=== PATIENT | female | born 1955 | race Caucasian/White ===

== ENCOUNTER 2020-07-14 07:12 | Emergency (ER) | payer MEDICARE ==
[2020-07-14 08:14] LABS: HEMOGLOBIN 13.2 gm/dl (12.3-15.3); RED BLOOD COUNT 4.59 M/UL (4.00-5.10); WHITE BLOOD COUNT 3.4 K/UL (4.5-11.0)
[2020-07-14 08:38] LABS: BUN/CREATININE RATIO 13 (0-10)
[2020-07-14] MEDS ORDERED: VIBRAMYCIN 100100 MG PO (10:02)
[2020-07-14] MEDS ORDERED: PROAIR DIGIHAL90 MCG INH (10:02)
[2020-07-14] MEDS ORDERED: ZOFRAN ODT 4 MG4 MG PO (10:02)
== END 2020-07-14 10:35 | disposition home or self-care (01) ==
LOC: ER1 07:12
PROVIDERS: Emergency Medicine
DX: U07.1 COVID-19 (principal); J12.82 Pneumonia due to coronavirus disease 2019; I10 Essential (primary) hypertension; E03.9 Hypothyroidism, unspecified
CPT/HCPCS: 0241U; 71045; 80053; 83605; 83690; 84439; 84443; 85025; 85610; 85730; 87040; 87081; 87880; 93005; 99285

== ENCOUNTER 2020-08-17 09:01 | Emergency (ER) | payer MEDICARE ==
[~2020-08-17 09:01] MED LIST: PROAIR DIGIHAL90 MCG INH; VIBRAMYCIN 100100 MG PO; ZOFRAN ODT 4 MG4 MG PO
[2020-08-17 09:50] LABS: HEMOGLOBIN 13.1 gm/dl (12.3-15.3); RED BLOOD COUNT 4.3 M/UL (4.00-5.10); WHITE BLOOD COUNT 13.3 K/UL (4.5-11.0)
[2020-08-17 10:11] LABS: BUN/CREATININE RATIO 12 (0-10)
[2020-08-17] MEDS ORDERED: AUGMENTIN 875-1 EACH PO (12:02)
== END 2020-08-17 12:26 | disposition home or self-care (01) ==
LOC: ER1 09:01
PROVIDERS: Emergency Medicine
DX: K52.9 Noninfective gastroenteritis and colitis, unspecified (principal)
CPT/HCPCS: 80053; 81001; 83690; 85025; 99284; Q9967

== ENCOUNTER 2021-07-11 07:38 | Emergency (ER) | payer MEDICARE ==
[~2021-07-11 07:38] MED LIST changes: +AUGMENTIN 875-1 EACH PO
== END 2021-07-11 11:25 | disposition home or self-care (01) ==
LOC: ER1 07:38
DX: K59.00 Constipation, unspecified (principal); I10 Essential (primary) hypertension
CPT/HCPCS: 99283

== ENCOUNTER → 2021-12-14 | Outpatient (CLI) | payer MEDICARE, BC | LOC: EXRD 12:49 | DX: M81.0 Age-related osteoporosis without current pathological fracture (principal); M85.89 Other specified disorders of bone density and structure, multiple sites | CPT/HCPCS: 77080 ==